=== PATIENT | female | born 1985 | race Caucasian/White ===

== ENCOUNTER 2020-11-04 13:37 | Emergency (ER) | payer OTHER ==
[~2020-11-04] VITALS: Ht 162.5 cm; Wt 61.2 kg
[2020-11-04 14:14] LABS: BASO % 0.5 % (0.0-1.0); EOS % 0.3 % (1.0-4.0); HEMATOCRIT 40.5 % (37.0-47.0); LYMPH # 1.9 10*3/uL (1.3-4.4); LYMPH % 25.1 % (27.0-41.0); MEAN CELL VOLUME 89.2 fl (81.0-99.0); MEAN CORPUSCULAR HGB 30.2 pg (27.0-31.0); MEAN CORPUSCULAR HGB CONC 33.8 g/dl (33.0-37.0); MEAN PLATELET VOLUME 10.6 fl (9.6-12.3); MONO # 0.6 10*3/uL (0.1-1.0); MONO % 7.3 % (3.0-9.0); NEUT # 5.1 10*3/uL (2.3-7.9); NEUT % 66.7 % (47.0-73.0); PLATELET COUNT AUTOMATED 247 10*3/uL (130-400); RED BLOOD COUNT 4.54 10*6/uL (4.10-5.10); RED CELL DISTRI WIDTH 11.9 % (0-14.5); WHITE BLOOD COUNT 7.6 10*3/uL (4.8-10.8)
[2020-11-04 14:30] LABS: ALBUMIN 3.5 gm/dl (3.1-4.5); ALKALINE PHOSPHATASE 41 U/L (45-117); BUN 10 mg/dl (7-24); CHLORIDE 111 mmol/L (98-107); CREATININE 0.77 mg/dL (0.55-1.02); LIPASE 88 U/L (73-393); POTASSIUM 3.8 mmol/L (3.5-5.1); SGOT/AST 11 IU/L (3-35); SGPT/ALT 18 U/L (12-78); SODIUM 141 mmol/L (136-145); TOTAL PROTEIN 7.5 gm/dL (6.4-8.2)
[2020-11-04 14:32] LABS: BETA-HCG, QUANT < 1.0 mIU/mL (1-3); TROPONIN I < 0.015 ng/ml (<0.045)
[2020-11-04 15:00] LABS: ACT PARTIAL THROMBO TIME 25.4 SECONDS (20.0-32.1); INTERNATIONAL NORM RATIO 0.9 (2.0-3.5)
== END 2020-11-04 15:45 | disposition home or self-care (01) ==
LOC: ED 13:37
PROVIDERS: Emergency Medicine
DX: R55 Syncope and collapse (principal); R00.2 Palpitations; R42 Dizziness and giddiness